=== PATIENT | male | born 1940 | race Hispanic/Latino ===

== ENCOUNTER → 2021-08-30 | Outpatient (CLI) | payer OTHER ==
[~2021-08-30] MED LIST: 0.9%NACL 1000ML 1,000 ML IV ONE; FENTANYL CITRATE PF 50 MCG/1 ML 5ML AMP IV ONE; GLYCOPYRROLATE 1 MG/5 ML SYRINGE ONE; MIDAZOLAM HCL 1 MG/ML 2ML VIAL ONE; ONDANSETRON 4MG INJ ONE; PROPOFOL 10 MG/ML 20ML VIAL IV ONE; PROPOFOL 1000 MG/100 ML 100 ML IV ONE; REGADENOSON 0.4 MG/5 ML PF SYG IVP SCH; ROCURONIUM 10MG/1ML SYR 10 MG/ML ML ONE
== END | disposition home or self-care (01) ==
LOC: RAH 08:15
PROVIDERS: ATTEND Internal Medicine Cardiovascular Disease
DX: I48.19 Other persistent atrial fibrillation (principal)
CPT/HCPCS: 78452; 93017; A9500 ×2; J2785; 96374

== ENCOUNTER 2022-01-21 07:17 | Observation (INO) | payer OTHER ==
[2022-01-16 11:23] LABS: BASOPHILS % (AUTO) 0.2 % (0.0-5.0); EOSINOPHILS % (AUTO) 0.3 % (0.0-8.0); HEMATOCRIT 45.1 % (42-54); LYMPHOCYTES % (AUTO) 17.8 % (21.0-51.0); MEAN CORPUSCULAR HEMOGLOBIN 31.3 pg (27.0-33.0); MEAN CORPUSCULAR HGB CONC 33.9 g/dL (32.0-36.0); MEAN CORPUSCULAR VOLUME 92.2 fL (79-99); MONOCYTES % (AUTO) 7.4 % (3.0-13.0); NEUTROPHILS % (AUTO) 73.6 % (40.0-77.0); PLATELET COUNT (AUTO) 236 K/uL (130-400); RED BLOOD CELL COUNT(AUTO) 4.89 MIL/uL (4.50-6.20); RED CELL DISTRIBUTION WIDTH 14.2 % (11.0-15.5); WHITE BLOOD COUNT (AUTO) 8.7 K/uL (4.8-10.8)
[2022-01-16 11:31] LABS: CREATININE 1.4 mg/dL (0.5-1.5); POTASSIUM 4.4 mmol/L (3.5-5.1)
[2022-01-16 11:41] LABS: INR 1.55 (0.85-1.15); PROTHROMBIN TIME 16.5 SEC (9.6-11.6)
[2022-01-16 11:42] LABS: PARTIAL THROMBOPLASTIN TIME 30.3 SEC (26.3-35.5)
[2022-01-20 12:05] VITALS: BP 116/66
[2022-01-21] VITALS (20 sets, daily range): BP systolic 120–145; BP diastolic 64–79
[~2022-01-21] VITALS: Ht 165.1 cm; Wt 106.1 kg
[2022-01-21] MEDS: CEFAZOLIN SODIUM 1 GM VIAL IVP SCH ×5 (06:00→19:57)
[~2022-01-21 07:17] MED LIST changes: -0.9%NACL 1000ML 1,000 ML IV ONE; +ALLO100T PO; +AMIO100T PO; +AMLO-257 PO; +ATOR10 PO; +ERGO500093 PO; -FENTANYL CITRATE PF 50 MCG/1 ML 5ML AMP IV ONE; +FURO20TA4 PO; -GLYCOPYRROLATE 1 MG/5 ML SYRINGE ONE; +LACTATED RINGERS 1000ML 1,000 ML IV SCH; +METF-444 PO; +METO-408 PO; -MIDAZOLAM HCL 1 MG/ML 2ML VIAL ONE; +MONT-39 PO; +OLME5TAB29 PO; -ONDANSETRON 4MG INJ ONE; -PROPOFOL 10 MG/ML 20ML VIAL IV ONE; -PROPOFOL 1000 MG/100 ML 100 ML IV ONE; -REGADENOSON 0.4 MG/5 ML PF SYG IVP SCH; -ROCURONIUM 10MG/1ML SYR 10 MG/ML ML ONE; +TRANEXAMIC ACID 1000MG/10ML IV SCH; +WARF-57 PO
[2022-01-21] MEDS ORDERED: 0.9%NACL 1000ML 1,000 ML IV ONE (07:48)
[2022-01-21 08:19] LABS: INR 1.14 (0.85-1.15); PROTHROMBIN TIME 12.3 SEC (9.6-11.6)
[2022-01-21 08:20] LABS: PARTIAL THROMBOPLASTIN TIME 26.8 SEC (26.3-35.5)
[2022-01-21] MEDS ORDERED: AMIODARONE 200 MG TABLET PO SCH (09:30)
[2022-01-21] MEDS ORDERED: POTASSIUM CHLORIDE 20MEQ/100ML 100 ML IV PRN (09:30)
[2022-01-21] MEDS ORDERED: LIDOCAINE HCL-MPF 1% 2ML VIAL IV PRN (09:30)
[2022-01-21] MEDS: ACETAMINOPHEN 500 MG TABLET PO SCH ×3 (09:30→23:48)
[2022-01-21] MEDS ORDERED: HYDROCODONE/ACETAMINOPHEN 5/325 MG TAB PO PRN (09:30)
[2022-01-21] MEDS ORDERED: KCL 20 MEQ ERTAB PO PRN (09:30)
[2022-01-21] MEDS: 0.9%NACL 1000ML 1,000 ML IV SCH ×2 (09:30→19:30)
[2022-01-21] MEDS ORDERED: POTASSIUM CHLORIDE 10% ELIXIR 20 MEQ/15 ML UDCUP PO PRN (09:30)
[2022-01-21] MEDS ORDERED: MORPHINE 4 MG SYG IVP PRN (09:30)
[2022-01-21] MEDS ORDERED: ONDANSETRON 4MG INJ IVP PRN (09:30)
[2022-01-21] MEDS ORDERED: LIDOCAINE PF 100MG/5ML (2%) SYRINGE 5ML ONE (10:25)
[2022-01-21] MEDS ORDERED: PROPOFOL 10 MG/ML 20ML VIAL IV ONE (10:26)
[2022-01-21] MEDS ORDERED: FENTANYL CITRATE PF 50 MCG/1 ML 2ML VIAL ONE ×2 (10:26→14:59)
[2022-01-21] MEDS ORDERED: ROCURONIUM 10MG/1ML SYR 10 MG/ML ML ONE (10:26)
[2022-01-21] MEDS ORDERED: NEOSTIGMINE 5MG/5ML SYR IV ONE (10:26)
[2022-01-21] MEDS ORDERED: GLYCOPYRROLATE 1 MG/5 ML SYRINGE ONE (10:26)
[2022-01-21] MEDS: INSULIN HUMULIN R 100 UNIT/ML 3ML SQ SCH ×3 (11:30→19:57)
[2022-01-21] MEDS ORDERED: ROPIVACAINE 0.5% 5MG/ML 30ML IJ ONE (11:46)
[2022-01-21] MEDS ORDERED: FAMOTIDINE 20MG VIAL IV ONE (11:46)
[2022-01-21] MEDS ORDERED: EPHEDRINE SULFATE 50 MG/ML AMPULE ONE (11:51)
[2022-01-21] MEDS: TRAMADOL HCL 50 MG TABLET PO SCH ×3 (12:00→23:47)
[2022-01-21] MEDS ORDERED: ONDANSETRON 4MG INJ ONE (12:09)
[2022-01-21] MEDS ORDERED: TRANEXAMIC ACID 1000MG/10ML ONE (12:22)
[2022-01-21] MEDS ORDERED: MEPERIDINE-PF 25 MG/ML SYG ONE ×3 (12:57→14:40)
[2022-01-21] MEDS ORDERED: KETOROLAC 15MG/ML VIAL (15MG/ML) ONE (14:24)
[2022-01-21] MEDS: LOSARTAN 25 MG TABLET PO SCH (19:50)
[2022-01-21] MEDS: WARFARIN SODIUM 5 MG TAB PO SCH (19:50)
[2022-01-21] MEDS: METFORMIN HCL 500 MG TABLET PO SCH (19:50)
[2022-01-21] MEDS: MONTELUKAST SODIUM 10 MG TAB PO SCH (19:50)
[2022-01-21] MEDS: ASPIRIN 81 MG EC TAB PO SCH (19:50)
[2022-01-21] MEDS: FAMOTIDINE 20MG TAB PO SCH (19:50)
[2022-01-22] VITALS (7 sets, daily range): BP systolic 128–166; BP diastolic 64–91
[2022-01-22 04:05] LABS: MEAN CORPUSCULAR HEMOGLOBIN 31.1 pg (27.0-33.0); MEAN CORPUSCULAR HGB CONC 33.8 g/dL (32.0-36.0); MEAN CORPUSCULAR VOLUME 92.2 fL (79-99); RED BLOOD CELL COUNT(AUTO) 4.34 MIL/uL (4.50-6.20); RED CELL DISTRIBUTION WIDTH 14.4 % (11.0-15.5); WHITE BLOOD COUNT (AUTO) 11.9 K/uL (4.8-10.8)
[2022-01-22] MEDS: 0.9%NACL 1000ML 1,000 ML IV SCH (04:06)
[2022-01-22 04:17] LABS: CREATININE 1.3 mg/dL (0.5-1.5); POTASSIUM 4.2 mmol/L (3.5-5.1)
[2022-01-22] MEDS: HYDROCODONE/ACETAMINOPHEN 10/325 MG TAB PO PRN ×2 (04:45→19:03)
[2022-01-22] MEDS: TRAMADOL HCL 50 MG TABLET PO SCH ×4 (05:40→23:05)
[2022-01-22] MEDS: INSULIN HUMULIN R 100 UNIT/ML 3ML SQ SCH ×4 (06:01→19:41)
[2022-01-22] MEDS: ASPIRIN 81 MG EC TAB PO SCH ×2 (08:24→19:45)
[2022-01-22] MEDS: AMLODIPINE 5 MG TAB PO SCH (08:24)
[2022-01-22] MEDS: METOPROLOL SUCCINATE 25 MG TAB.SR.24H PO SCH (08:24)
[2022-01-22] MEDS: FAMOTIDINE 20MG TAB PO SCH ×2 (08:24→19:46)
[2022-01-22] MEDS: METFORMIN HCL 500 MG TABLET PO SCH ×2 (08:24→19:45)
[2022-01-22] MEDS: ACETAMINOPHEN 500 MG TABLET PO SCH ×2 (08:25→18:01)
[2022-01-22] MEDS: POLYETHYLENE GLYCOL 3350 17 GM POWD.PACK PO SCH (09:22)
[2022-01-22] MEDS: MONTELUKAST SODIUM 10 MG TAB PO SCH (19:45)
[2022-01-22] MEDS: WARFARIN SODIUM 5 MG TAB PO SCH (19:45)
[2022-01-22] MEDS: LOSARTAN 25 MG TABLET PO SCH (19:46)
[2022-01-23] MEDS: ACETAMINOPHEN 500 MG TABLET PO SCH ×2 (01:02→08:49)
[2022-01-23 03:35] VITALS: BP 130/71
[2022-01-23] MEDS: TRAMADOL HCL 50 MG TABLET PO SCH ×2 (05:20→11:39)
[2022-01-23] MEDS: INSULIN HUMULIN R 100 UNIT/ML 3ML SQ SCH ×2 (05:59→11:21)
[2022-01-23] MEDS: HYDROCODONE/ACETAMINOPHEN 10/325 MG TAB PO PRN ×2 (06:48→14:45)
[2022-01-23 08:14] VITALS: BP 116/70
[2022-01-23] MEDS: METOPROLOL SUCCINATE 25 MG TAB.SR.24H PO SCH (08:44)
[2022-01-23] MEDS: AMLODIPINE 5 MG TAB PO SCH (08:44)
[2022-01-23] MEDS: FAMOTIDINE 20MG TAB PO SCH (08:44)
[2022-01-23] MEDS: ASPIRIN 81 MG EC TAB PO SCH (08:45)
[2022-01-23] MEDS: METFORMIN HCL 500 MG TABLET PO SCH (08:45)
[2022-01-23] MEDS: POLYETHYLENE GLYCOL 3350 17 GM POWD.PACK PO SCH (08:45)
[2022-01-23 11:35] VITALS: BP 120/60
[2022-01-24] MEDS ORDERED: BISACODYL 10 MG SUPP.RECT RC PRN (09:30)
== END 2022-01-23 16:15 | disposition home or self-care (01) ==
LOC: DAH 07:17 → DAHIP 07:18 → 4BH 15:53
PROVIDERS: ADMIT Orthopaedic Surgery; ATTEND Orthopaedic Surgery
DX: M17.11 Unilateral primary osteoarthritis, right knee (principal); Z20.822 Contact with and (suspected) exposure to COVID-19; I48.91 Unspecified atrial fibrillation; Z79.84 Long term (current) use of oral hypoglycemic drugs; Z79.01 Long term (current) use of anticoagulants; Z79.899 Other long term (current) drug therapy; Z98.890 Other specified postprocedural states
CPT/HCPCS: 27447; S2900; 36415; 64447; 73562; 76942; 80048; 82948; 85025; 85027; 85610; 85730; 87426; 87641; 93005; 96374; 96375; 96376; 97039; G0378; J0690; J1885; J2001; J2175; J2270; J2405; J2704; J2710; J2795; J3010; J3490; J7030